=== PATIENT | male | born 1955 | race Asian ===

== ENCOUNTER 2017-07-13 07:18 | Emergency (ER) | payer BC ==
[~2017-07-13] VITALS: Ht 177.8 cm; Wt 86.4 kg
[~2017-07-13 07:18] MED LIST: CRESTOR 10MG10 MG PO; FISH OIL1 IU PO; LIPITOR20 MG PO; MVI
[2017-07-13 07:21] VITALS: TEMP 100
[2017-07-13] MEDS ORDERED: LIPITOR20 MG PO (07:23)
[2017-07-13] MEDS ORDERED: AMOXICILLIN 50500 MG PO (07:25)
[2017-07-13 08:00] LABS: INFLUENZA A NEGATIVE; INFLUENZA B POSITIVE
[2017-07-13] MEDS ORDERED: TAMIFLU 75MG75 MG PO (08:07)
[2017-07-13 08:18] VITALS: BP 154/102; PULSE 84
== END 2017-07-13 08:19 | disposition home or self-care (01) ==
LOC: COL.ER 07:18
PROVIDERS: Emergency Medicine
DX: J10.1 Influenza due to other identified influenza virus with other respiratory manifestations (principal); I10 Essential (primary) hypertension; E78.00 Pure hypercholesterolemia, unspecified

== ENCOUNTER → 2019-08-20 | Outpatient (CLI) | payer BC ==
[~2019-08-20] MED LIST changes: +AMOXICILLIN 50500 MG PO; +TAMIFLU 75MG75 MG PO
== END ==
LOC: COL.RAD 09:41
DX: K76.0 Fatty (change of) liver, not elsewhere classified (principal)